=== PATIENT | male | born 1965 | race Caucasian/White ===

== ENCOUNTER 2020-01-06 15:52 | Emergency (ER) | payer BC ==
[~2020-01-06] VITALS: Ht 182.8 cm; Wt 108.0 kg
[2020-01-06] MEDS ORDERED: Metoprolol Suc200 MG PO (16:35)
== END 2020-01-06 16:44 | disposition home or self-care (01) ==
LOC: ED 15:52
DX: Z76.0 Encounter for issue of repeat prescription (principal)